=== PATIENT | male | born 1970 | race Caucasian/White ===

== ENCOUNTER 2017-11-21 10:35 | Inpatient (IN) | payer MEDICARE, OTHER ==
[~2017-11-21] VITALS: Ht 172.7 cm; Wt 122.4 kg
[~2017-11-21 10:35] MED LIST: AMOCLA875 PO; Colace250 MG PO; DIAZ10 PO; ESCI20 PO; GABA300 PO; HYDMOR4 PO; IBUP600 PO; IBUP800; LISI20 PO; LISI5; MEDICAL MARIJUANA; METCAR500 PO; METO50ER PO; NORT25 PO; OXYC5 PO; PRED20 PO; Percocet 5-3251 EACH PO; SERT50 PO; TRAM50 PO; [UNRECOGNIZED DRUG - OTHER]
[2017-11-21] MEDS ORDERED: LOSA25 PO (10:50)
[2017-11-21] MEDS ORDERED: TRAM50 PO (10:51)
[2017-11-21] MEDS ORDERED: SERT100 PO (10:51)
[2017-11-21 11:42] LABS: BASOPHILS ABSOLUTE AUTO 0.06 K/mm3 (0.00-0.23); BASOPHILS PERCENT AUTO 0 % (0-2); EOSINOPHILS ABSOLUTE AUTO 0.66 K/mm3 (0.00-0.68); EOSINOPHILS PERCENT AUTO 4 % (0-6); Hematocrit 39.6 % (37.0-53.0); Hemoglobin 13.4 g/dL (13.5-17.5); IMMATURE GRAN ABSOLUTE AUTO 0.06 K/mm3 (0.00-0.10); IMMATURE GRAN PERCENT AUTO 0 % (0-1); LYMPHOCYTES ABSOLUTE AUTO 1.31 K/mm3 (0.84-5.20); LYMPHOCYTES PERCENT AUTO 9 % (21-46); MONOCYTES ABSOLUTE AUTO 0.73 K/mm3 (0.16-1.47); MONOCYTES PERCENT AUTO 5 % (4-13); Mean Corpuscular HGB Conc 33.8 g/dL (31.5-36.5); Mean Corpuscular Volume 92 fL (80-100); Mean Platelet Volume 9.7 fL (9.1-12.4); NEUTROPHILS ABSOLUTE AUTO 12.46 K/mm3 (1.96-9.15); NEUTROPHILS PERCENT AUTO 82 % (41-73); Platelet Count 418 K/mm3 (150-400); RDW Coefficient Variation 12.6 % (11.7-14.2); RDW Standard Deviation 42.7 fL (35.1-46.3); Red Blood Cell Count 4.32 M/mm3 (4.30-5.90); White Blood Cell Count 15.28 K/mm3 (4.00-11.30)
[2017-11-21 12:00] LABS: Alanine Aminotransfer (ALT/SGP 34 U/L (12-78); Albumin, Blood 3.5 g/dL (3.4-5.0); Albumin/Globulin Ratio 0.7 (0.8-1.8); Alk Phos 72 U/L (50-136); Anion Gap 9 mmol/L (6-16); Aspartate Aminotrans (AST/SGOT 32 U/L (12-37); Bilirubin, Total 0.5 mg/dL (0.1-1.0); Blood Urea Nitrogen 11 mg/dL (8-24); Bun/Creatinine Ratio 12.7 (12.0-20.0); CO2, Blood 25 mmol/L (21-32); Calcium, Blood 8.7 mg/dL (8.5-10.1); Chloride, Blood 103 mmol/L (98-108); Creatinine, Blood 0.87 mg/dL (0.60-1.20); Globulin, Blood 4.8 g/dL (2.2-4.0); Glomerular Filtration Rate >60 (60-); Glucose, Blood 96 mg/dL (70-99); Potassium, Blood 4.2 mmol/L (3.5-5.5); Sodium, Blood 137 mmol/L (136-145); Total Protein, Blood 8.3 g/dL (6.4-8.2)
[2017-11-21 12:38] LABS: Ethanol (Alcohol), Blood, Med <3 mg/dL
[2017-11-21 14:29] LABS: PCO2 Arterial 37.1 mmHg (35-45); PO2 Arterial 54.9 mmHg (80-100); pH Blood Arterial 7.39 (7.35-7.45)
[2017-11-21 18:45] LABS: Adenovirus Not Detected (NOT DETECT); Bordetella pertussis Not Detected (NOT DETECT); Chlamydophila pneumoniae Not Detected (NOT DETECT); Coronavirus 229E Not Detected (NOT DETECT); Coronavirus HKU1 Not Detected (NOT DETECT); Coronavirus NL63 Not Detected (NOT DETECT); Coronavirus OC43 Not Detected (NOT DETECT); Human Metapneumovirus Not Detected (NOT DETECT); Human Rhinovirus/Enterovirus Not Detected (NOT DETECT); Influenza A/2009-H1 Not Detected (NOT DETECT); Influenza A/H1 Not Detected (NOT DETECT); Influenza A/H3 Not Detected (NOT DETECT); Influenza B Not Detected (NOT DETECT); Mycoplasma pneumoniae Not Detected (NOT DETECT); Parainfluenza Virus 1 Not Detected (NOT DETECT); Parainfluenza Virus 2 Not Detected (NOT DETECT); Parainfluenza Virus 3 Not Detected (NOT DETECT); Parainfluenza Virus 4 Not Detected (NOT DETECT); Respiratory Syncytial Virus Not Detected (NOT DETECT)
[2017-11-21 22:04] LABS: Bilirubin, Urine Neg (Neg); Blood, Urine 1+ (Neg); Glucose Qualitative, Urine Neg (Neg); Ketones, Urine 3+ (Neg); Leukocyte Esterase, Urine Neg (Neg); Nitrite, Urine Neg (Neg); Protein, Urine 2+ (Neg); Source, Urine Clean Catch; Urobilinogen, Urine NORM (Normal)
[2017-11-21 22:11] LABS: Appearance, Urine Clear (Clear); Color, Urine Yellow (P-Yellow)
[2017-11-21 22:14] LABS: Amorphous Light ([, 0-Heavy]); Bacteria Rare /hpf; Red Blood Cells, Urine 0-2 /hpf (0-2); Squamous Epithelial Cells Not Seen /hpf (Few); White Blood Cells, Urine Rare /hpf (0-5)
[2017-11-21 22:17] LABS: U Amphetamine Screen Not Detected; U Barbituate Screen Not Detected; U Benzodiazapine Screen Not Detected; U Buprenorphine Screen Not Detected; U Cannabinoids Screen DETECTED; U Cocaine Screen Not Detected; U Methadone Screen Not Detected; U Methamphetamine Screen Not Detected; U Opiates Screen Not Detected; U Oxycodone Screen Not Detected; U Phencyclidine Screen Not Detected; U Propoxyphene Screen Not Detected
[2017-11-22 05:05] LABS: BASOPHILS ABSOLUTE AUTO 0.07 K/mm3 (0.00-0.23); BASOPHILS PERCENT AUTO 1 % (0-2); EOSINOPHILS ABSOLUTE AUTO 1.52 K/mm3 (0.00-0.68); EOSINOPHILS PERCENT AUTO 11 % (0-6); Hematocrit 36.9 % (37.0-53.0); Hemoglobin 12.3 g/dL (13.5-17.5); IMMATURE GRAN ABSOLUTE AUTO 0.05 K/mm3 (0.00-0.10); IMMATURE GRAN PERCENT AUTO 0 % (0-1); LYMPHOCYTES ABSOLUTE AUTO 1.77 K/mm3 (0.84-5.20); LYMPHOCYTES PERCENT AUTO 12 % (21-46); MONOCYTES ABSOLUTE AUTO 0.77 K/mm3 (0.16-1.47); MONOCYTES PERCENT AUTO 5 % (4-13); Mean Corpuscular HGB 30.5 pg (26.0-34.0); Mean Corpuscular HGB Conc 33.3 g/dL (31.5-36.5); Mean Corpuscular Volume 92 fL (80-100); Mean Platelet Volume 9.9 fL (9.1-12.4); NEUTROPHILS ABSOLUTE AUTO 10.15 K/mm3 (1.96-9.15); NEUTROPHILS PERCENT AUTO 71 % (41-73); Platelet Count 392 K/mm3 (150-400); RDW Coefficient Variation 12.7 % (11.7-14.2); RDW Standard Deviation 42.7 fL (35.1-46.3); Red Blood Cell Count 4.03 M/mm3 (4.30-5.90); White Blood Cell Count 14.33 K/mm3 (4.00-11.30)
[2017-11-22 05:19] LABS: Anion Gap 9 mmol/L (6-16); Blood Urea Nitrogen 8 mg/dL (8-24); CO2, Blood 24 mmol/L (21-32); Calcium, Blood 8.1 mg/dL (8.5-10.1); Chloride, Blood 106 mmol/L (98-108); Creatinine, Blood 0.89 mg/dL (0.60-1.20); Glomerular Filtration Rate >60 (60-); Glucose, Blood 94 mg/dL (70-99); Sodium, Blood 139 mmol/L (136-145)
[2017-11-22 05:45] LABS: Influenza A Not Detected (NOT DETECT)
[2017-11-22 22:14] LABS: Influenza A Negative (NEGATIVE); Influenza B Negative (NEGATIVE)
[2017-11-23 05:37] LABS: BASOPHILS ABSOLUTE AUTO 0.06 K/mm3 (0.00-0.23); BASOPHILS PERCENT AUTO 1 % (0-2); EOSINOPHILS ABSOLUTE AUTO 2.08 K/mm3 (0.00-0.68); EOSINOPHILS PERCENT AUTO 21 % (0-6); Hematocrit 35.4 % (37.0-53.0); Hemoglobin 11.7 g/dL (13.5-17.5); IMMATURE GRAN ABSOLUTE AUTO 0.04 K/mm3 (0.00-0.10); IMMATURE GRAN PERCENT AUTO 0 % (0-1); LYMPHOCYTES ABSOLUTE AUTO 1.64 K/mm3 (0.84-5.20); LYMPHOCYTES PERCENT AUTO 16 % (21-46); MONOCYTES ABSOLUTE AUTO 0.77 K/mm3 (0.16-1.47); MONOCYTES PERCENT AUTO 8 % (4-13); Mean Corpuscular HGB 30.7 pg (26.0-34.0); Mean Corpuscular HGB Conc 33.1 g/dL (31.5-36.5); Mean Corpuscular Volume 93 fL (80-100); Mean Platelet Volume 9.8 fL (9.1-12.4); NEUTROPHILS ABSOLUTE AUTO 5.55 K/mm3 (1.96-9.15); NEUTROPHILS PERCENT AUTO 55 % (41-73); Platelet Count 341 K/mm3 (150-400); RDW Coefficient Variation 12.8 % (11.7-14.2); RDW Standard Deviation 43.9 fL (35.1-46.3); Red Blood Cell Count 3.81 M/mm3 (4.30-5.90); White Blood Cell Count 10.14 K/mm3 (4.00-11.30)
[2017-11-24 06:46] LABS: Vancomycin, Trough 9.2 ug/mL (5.0-10.0)
[2017-11-25] MEDS ORDERED: BENZ100A PO (11:15)
[2017-11-25] MEDS ORDERED: DULERA 200 MCG/13 GM INH (11:15)
[2017-11-25] MEDS ORDERED: ALBU90OI INH (11:16)
[2017-11-25] MEDS ORDERED: Q-Tussin100 MG/5 M PO (11:17)
[2017-11-25] MEDS ORDERED: Bactrim Ds Tab1 EACH PO (11:18)
== END 2017-11-25 12:28 | disposition home or self-care (01) | DRG 871 ==
LOC: ER 10:35 → MEDS 14:04 → ENPENDDIS 11-25 12:00 → MEDS 11-25 12:28
PROVIDERS: Emergency Medicine; Internal Medicine
DX: A41.9 Sepsis, unspecified organism (principal); J15.211 Pneumonia due to Methicillin susceptible Staphylococcus aureus; E86.0 Dehydration; I10 Essential (primary) hypertension; G89.29 Other chronic pain; M54.9 Dorsalgia, unspecified; G47.34 Idiopathic sleep related nonobstructive alveolar hypoventilation; Z88.5 Allergy status to narcotic agent; Z87.891 Personal history of nicotine dependence; Z79.899 Other long term (current) drug therapy
CPT/HCPCS: 36415; 36600; 71046; 71260; 80048; 80053; 80202; 81001; 82803; 83605; 83690; 85025; 85379; 87040; 87070; 87077; 87186; 87205; 87486; 87493; 87581; 87633; 87798; 87804; 93005; 93010; 93306; 94640; 94660; 94762; 96361; 96374; 99285-25; G0480; J0690; J1650; J1885; J2543; J3370; J7030; J7050; Q9967

== ENCOUNTER → 2024-10-13 | Outpatient (CLI) | payer OTHER ==
[~2024-10-13] MED LIST changes: +ACET325 PO; +ALBU90OI INH; +ALBU90OI61 INH; +AMOX875 PO; +BENZ100A PO; +Bactrim Ds Tab1 EACH PO; +Culturelle1 CAP PO; +DOCU100 PO; +DULERA 200 MCG/13 GM INH; +FURO20 PO; +LOSA25 PO; +Multivitamin1 EAC1 PO; +Q-Tussin100 MG/5 M PO; +SERT100 PO; +SPIRIVA RESPIMAT4 G1 INH
[2024-10-13 16:18] LABS: U Amphetamine Screen Not Detected; U Barbituate Screen Not Detected; U Benzodiazapine Screen Not Detected; U Buprenorphine Screen Not Detected; U Cannabinoids Screen DETECTED; U Cocaine Screen Not Detected; U Methadone Screen Not Detected; U Methamphetamine Screen Not Detected; U Opiates Screen Not Detected; U Oxycodone Screen Not Detected; U Phencyclidine Screen Not Detected
[2024-10-20 07:29] LABS: 11-NOR-9-CARBOXY-THC,URN,QUANT 137 ng/mL
== END | disposition home or self-care (01) ==
LOC: LAB SHORT 14:55 → LAB 14:55
PROVIDERS: Internal Medicine
DX: M19.90 Unspecified osteoarthritis, unspecified site (principal); Z79.899 Other long term (current) drug therapy
CPT/HCPCS: G0480

== ENCOUNTER → 2024-11-04 | Outpatient (CLI) | payer OTHER ==
[2024-11-11 12:49] LABS: 11-NOR-9-CARBOXY-THC,URN,QUANT 157 ng/mL
== END | disposition home or self-care (01) ==
LOC: LAB SHORT 17:57 → LAB 17:57
PROVIDERS: Internal Medicine
DX: M47.819 Spondylosis without myelopathy or radiculopathy, site unspecified (principal); Z79.891 Long term (current) use of opiate analgesic
CPT/HCPCS: G0480